=== PATIENT | female | born 1990 | race Caucasian/White ===

== ENCOUNTER 2019-04-09 15:25 | Emergency (ER) | payer MEDICAID ==
[~2019-04-09] VITALS: Ht 144.8 cm; Wt 60.0 kg
[2019-04-09 15:42] VITALS: Ht 144.8 cm; Wt 60.0 kg
--- NOTE | 2019-04-09 16:15 | EN ---
Date/Time of Note Date/Time of Note DATE: 04/09/19 TIME: 16:15 ER Progress Note ED 3 MSE. 19-week G1 para 0 with vaginal spotting and cramping. Radiologic studies initiated .patient otherwise well-appearing. MICHAEL POPE MD April 09, 2019 16:15
[2019-04-09] MEDS ORDERED: SOD CHLORIDE 0.9% 1,000 ML IV STA (16:32)
[2019-04-09] MEDS ORDERED: ACETAMINOPHEN 325 MG TAB PO ONE (17:00)
--- NOTE | 2019-04-09 17:12 | ERD ---
ER Documentation Chief Complaint Chief Complaint /10 PELVIC PAIN WITH VAGINAL BLEEDING & 19WKS PREG HPI The patient is a 28-year-old female, presenting to the ER because of pelvic pain about 3 hours prior to arrival, with minimal vaginal spotting, denies similar symptoms previously, complains of mild pain, denies fever, chills, neck pain, chest pain, dyspnea, upper abdominal pain, vomiting, dysuria, diarrhea. She does not smoke nor drink, 1 para 0, LMP was November 27, 2018 Past medical/surgical history: None ROS All systems reviewed and are negative except as per history of present illness. Medications Home Meds Active Scripts Acetaminophen* (Tylenol*) 325 Mg Tablet, 2 TAB PO Q6 PRN for PAIN AND OR ELEVATED TEMP, #20 TAB Prov:GREG ARTEAGA MD 04/09/19 Cephalexin* (Keflex*) 500 Mg Capsule, 500 MG PO QID for 7 Days, CAP Prov:GREG ARTEAGA MD 04/09/19 Allergies Allergies: Coded Allergies: No Known Allergy (Unverified , 04/09/19) PMhx/Soc Medical and Surgical Hx: pt denies Medical Hx, pt denies Surgical Hx Hx Alcohol Use: No Hx Substance Use: No Hx Tobacco Use: No Smoking Status: Never smoker Physical Exam Vitals Vital Signs Date Temp Pulse Resp B/P (MAP) Pulse Ox O2 O2 Flow FiO2 Time Delivery Rate 04/09/19 98.1 86 16 98/55 (69) 99 15:42 Physical Exam Const: No acute distress. Head: Atraumatic. Eyes: Normal Conjunctiva. ENT: Normal External Ears, Nose and Mouth. Neck: Full range of motion. No meningismus. Resp: Clear to auscultation bilaterally. Cardio: Regular rate and rhythm. Abd: Soft, non distended, normal bowel sounds, mild suprapubic t enderness, no rigidity/rebound/CVA tenderness Skin: No petechiae or rashes. Back: No midline or flank tenderness. Ext: No cyanosis, or edema. Neur: Awake and alert. No focal deficit Psych: Normal Mood and Affect. Result Diagram: 04/09/19 1647 Results 24 hrs Laboratory Tests Test 04/09/19 16:47 04/09/19 16:50 White Blood Count 8.3 10^3/ul Red Blood Count 3.91 10^6/ul Hemoglobin 11.6 g/dl Hematocrit 34.4 % Mean Corpuscular Volume 88.0 fl Mean Corpuscular Hemoglobin 29.7 pg Mean Corpuscular Hemoglobin Concent 33.7 g/dl Red Cell Distribution Width 13.1 % Platelet Count 229 10^3/UL Mean Platelet Volume 10.0 fl Immature Granulocytes % 0.500 % Neutrophils % 68.8 % Lymphocytes % 22.4 % Monocytes % 5.8 % Eosinophils % 2.3 % Basophils % 0.2 % Nucleated Red Blood Cells % 0.0 /100WBC Immature Granulocytes # 0.040 10^3/ul Neutrophils # 5.7 10^3/ul Lymphocytes # 1.9 10^3/ul Monocytes # 0.5 10^3/ul Eosinophils # 0.2 10^3/ul Basophils # 0.0 10^3/ul Nucleated Red Blood Cells # 0.0 10^3/ul Beta HCG, Quantitative 07505.0 mIU/ml Bedside Urine pH (LAB) 6.5 Bedside Urine Protein (LAB) Negative Bedside Urine Glucose (UA) Negative Bedside Urine Ketones (LAB) Negative Bedside Urine Blood Negative Bedside Urine Nitrite (LAB) Negative Bedside Urine Leukocyte Esterase (L 1+ Current Medications Medications Dose Sig/Mike Start Time Status Last (Trade) Ordered Route PRN Stop Time Admin Dose Reason Admin Sodium 1,000 ml @ Q1H STAT 04/09/19 DC 04/09/19 Chloride 1,000 mls/hr IV 16:32 16:52 04/09/19 17:31 650 mg ONCE ONCE 04/09/19 DC 04/09/19 Acetaminophen PO 17:00 16:52 (Tylenol 04/09/19 17:01 Tab) Procedures/[place] [id number] Radiology Main Line: [phone] DIAGNOSTIC IMAGING REPORT Patient: KATHY LINDQUIST : 1990 Age: 28 Sex: F MR #: [id number] DOS: 04/09/19 1551 Ordering MD: MICHAEL POPE MD Location: [facility] Room/Bed: PROCEDURE: US OB. CLINICAL INDICATION: Second trimester hemorrhage. Threatened . TECHNIQUE: Transabdominal views of the pelvis are available for review. COMPARISON: No prior studies are available for comparison. FINDINGS: Noted is a single intrauterine gestation in variable lie with positive heart beat measuring 139 beats per minute. The biparietal diameter measures 4 cm corresponding to a gestational age 19 weeks 2 days. Femur length measures 3 cm corresponding to a gestational age 19 weeks 1 day. Abdominal circumference measures 14.5 cm corresponding to a gestational age 19 weeks 6 days. The FL/AC ratio is 20.6. Estimated date of delivery by ultrasound criteria is September 04. Estimated weight is 286 g. No gross anomaly is seen, however, no anatomic survey was performed. The placenta is anterior grade II. There is no evidence of previa. The maternal cervix was not measured. Amniotic fluid index was not calculated, however, there is qualitative normal volume of amniotic fluid. IMPRESSION: Single intrauterine gestation of approximate gestational age 18 weeks 6 days by ultrasound criteria with positive heart beat. No gross anomaly. Fluid within normal limits. Anterior grade II placenta without evidence of p revia. .Gonzalo Samuel MD, MD Date Time Electronically viewed and signed by .Gonzalo Samuel MD, MD on 04/09/2019 16:32 .A/ CC: MICHAEL POPE MD [phone] MEDICAL MAKING DECISION: The patient is a 28-year-old female, presenting with acute threatened , acute cystitis, is stable for outpatient follow-up. Urine culture requested The differential diagnoses considered include but are not limited to threatened/incomplete/inevitable/complete , ectopic , non- related bleeding. Departure Diagnosis: Primary Impression: Threatened Additional Impressions: UTI (urinary tract infection) Anemia Condition: Good Comments She was discharged with Keflex and Tylenol I discussed the findings with the patient. I advised the patient to follow-up with her OB in about 2-3 days, sooner if needed and return if any concern. Disclaimer: Inadvertent spelling and grammatical errors are likely due to EHR/dictation software use and do not reflect on the overall quality of patient care. Also, please note that the electronic time recorded on this note does not necessarily reflect the actual time of the patient encounter. GREG ARTEAGA MD April 09, 2019 17:12
[2019-04-09] MEDS ORDERED: CEPH-443 PO (17:59)
[2019-04-09] MEDS ORDERED: ACET325T33 PO (17:59)
[2019-04-09 18:17] VITALS: BP 100/53; PULSE 69; RESP 18
== END 2019-04-09 18:20 | disposition home or self-care (01) ==
LOC: FTE 15:25
DX: O20.0 Threatened abortion (principal); O23.42 Unspecified infection of urinary tract in pregnancy, second trimester; O99.012 Anemia complicating pregnancy, second trimester; Z3A.19 19 weeks gestation of pregnancy
CPT/HCPCS: 36415; 76805; 81003; 84702; 85025; 86900; 86901; 87086; 96360; J7030; Z7502; Z7610

== ENCOUNTER 2019-04-28 17:58 | Outpatient (CLI) | payer MEDICAID ==
[~2019-04-28] VITALS: Ht 149.9 cm; Wt 58.4 kg
[~2019-04-28 17:58] MED LIST: ACET325T33 PO; CEPH-443 PO
[2019-04-28] MEDS ORDERED: PREN-93 PO (18:25)
[2019-04-28 18:26] VITALS: Ht 149.9 cm; Wt 58.4 kg
--- NOTE | 2019-04-28 22:21 | PN ---
Triage Information Date/Time Reason for visit: Rash and bumps on her upper thigh and inner buttocks area Weeks of Gestation Patient is a 29-year-old 1 para 0 at 21 weeks and 5 days of gestation with estimated delivery September 03, 2019 She is complaining of rash and bumps on her upper thigh and inner buttocks area Patient reports of being recently treated for UTI with Keflex which she finished yesterday Patient reports positive movement, denies vaginal bleeding or leaking fluid, denies feeling uterine contractions /Para 1 para 0 Diabetes: none Hypertention: none Objective Heart Rate: 140's Heart Rate Comments heart rate appropriate for gestational age Contractions: < 5 Minutes Apart Results/Medications Results 24 hrs Laboratory Tests Test 04/28/19 19:10 Urine Color YELLOW Urine Clarity SLIGHTLY CLOUDY A Urine pH 6.0 Urine Specific [place] 1.018 Urine Ketones TRACE A Urine Nitrite NEGATIVE Urine Bilirubin NEGATIVE Urine Urobilinogen NEGATIVE Urine Leukocyte Esterase 2+ H Urine Microscopic RBC 31 H Urine Microscopic WBC 15 H Urine Squamous Epithelial Cells FEW Urine Calcium Oxalate Crystals MODERATE Urine Bacteria FEW A Urine Mucus MODERATE Urine Hemoglobin NEGATIVE Urine Glucose NEGATIVE Urine Total Protein NEGATIVE Imaging Results PROCEDURE: US OB. CLINICAL INDICATION: , vaginal and leg bumps. TECHNIQUE: Multiple sonographic images of the pelvis were obtained. Transabdominal imaging only was performed. The images were reviewed on a PACS workstation. COMPARISON: No prior studies are available for comparison. FINDINGS: The cervix is closed with a length of 4.1 cm. A small amount of fluid is seen in the endocervical canal, however. There is a single live intrauterine gestation. Cardiac activity is present with 139 beats per minute. There is a variable presentation. Measurements were made in order to determine age. The results are as follows: BPD = 4.99 cm HC = 18.84 cm AC = 18.30 cm FL = 3.61 cm Estimated gestational age of approximately 21 weeks 5 days. The estimated date of delivery is 09/03/2019. The EFW = 484 g. EFW percentile: 70% The placenta is anterior, grade 1. There is no evidence for an abruption or placenta previa. There is an adequate amount of amniotic fluid. The MVP measures 5.9 cm. IMPRESSION: Single live intrauterine gestation of approximately 21 weeks 5 days, based on ultrasound measurements. The estimated date of delivery is 09/03/2019. EFW percentile: 70%. Closed cervix measuring 4.1 cm. There is a small of fluid in the endocervical canal. RPTAT: HTAR .Kermit Saunders MD, Date Time Electronically viewed and signed by .Kermit Saunders MD, on 04/28/2019 19:51 .R/ CC: HO RICARDO M.D. [phone] Disposition: Discharge Assessment/Plan Urinalysis suggestive of UTI Urine culture was sent Prescription for Macrobid was given Prescription for triple antibiotics were given for skin bacterial infection Patient instructed to increase p.o. hydration Patient instructed to follow-up with [facility] in 1 to 2 days KINSEY PALACIOS MD Apr 28, 2019 22:21
== END 2019-04-28 21:31 | disposition home or self-care (01) ==
LOC: OBT 17:58 → L-D 18:00 → OBT 21:31
PROVIDERS: ATTEND Obstetrics & Gynecology
DX: O26.892 Other specified pregnancy related conditions, second trimester (principal); R21 Rash and other nonspecific skin eruption; O23.42 Unspecified infection of urinary tract in pregnancy, second trimester; Z3A.21 21 weeks gestation of pregnancy
CPT/HCPCS: 76815; 76817; 81001; 87086; Z7500; G0463